=== PATIENT | female | born 1980 | race Two or more races ===

== ENCOUNTER 2021-05-03 09:49 | Emergency (ER) | payer MEDICAID, OTHER ==
[~2021-05-03] VITALS: Ht 152.4 cm; Wt 104.3 kg
[2021-05-03 10:49] LABS: Basophils # (auto) 0 10 ^3/uL (0-0.2); Hemoglobin 10.6 g/dL (12.2-16.2); Lymphocytes # (auto) 2.6 10 ^3/uL (0.4-5.4); Monocytes # (auto) 0.2 10 ^3/uL (0-1.3)
[2021-05-03 10:51] LABS: Basophils % (auto) 0.3 % (0.0-2.0); Eosinophils # (auto) 0.1 10 ^3/uL (0-0.8); Eosinophils % (auto) 1.4 % (0.0-7.0); Hematocrit 33.5 % (36.0-46.0); Lymphocytes % (auto) 28.1 % (10.0-50.0); Mean Corpuscular Hemoglobin 22.2 pg (28.0-32.0); Mean Corpuscular Hgb Conc. 31.5 g/dL (32.0-36.0); Mean Corpuscular Volume 70.4 fL (80.0-100.0); Monocytes % (auto) 2.6 % (0.0-12.0); Neutrophils # (auto) 6.2 10 ^3/uL (1.6-8.6); Neutrophils % (auto) 67.6 % (37.0-80.0); Red Blood Cells 4.76 10^6/uL (4.0-5.20); Red Cell Distribution Width 16.3 % (11.8-14.3); White Blood Cell 9.2 10^3/uL (4.4-10.8)
[2021-05-03] MEDS ORDERED: ONDANSETRON HCL 4 MG/2 ML VIAL IV ONE (11:00)
[2021-05-03] MEDS ORDERED: MORPHINE SULFATE 4 MG/ML SYR/VIAL IV ONE (11:00)
[2021-05-03 11:18] LABS: Albumin 3.6 g/dL (3.4-5.0); BUN/Creatinine Ratio 26.2; Bilirubin, Total 0.3 mg/dL (0.2-1.0); Calcium 8.4 mg/dL (8.5-10.1); Total Protein 7.3 g/dL (6.4-8.2)
[2021-05-03 15:19] LABS: Urine Bacteria NONE SEEN /hpf (None Seen); Urine Blood 3+ /uL (Negative); Urine Mucus FEW (None Seen); Urine Specific Gravity 1.022 (1.001-1.035); Urine WBC 363 /hpf (0 - 5)
[2021-05-03 15:45] VITALS: BP 142/58
== END 2021-05-03 15:37 | disposition home or self-care (01) ==
LOC: ER 09:49
DX: N39.0 Urinary tract infection, site not specified (principal); E11.9 Type 2 diabetes mellitus without complications; Z90.49 Acquired absence of other specified parts of digestive tract
CPT/HCPCS: 36415; 76830; 76856; 80053; 81001; 84702; 85025

== ENCOUNTER 2021-06-25 08:32 | Emergency (ER) | payer MEDICAID ==
[~2021-06-25] VITALS: Ht 165.1 cm; Wt 113.4 kg
[2021-06-25] MEDS ORDERED: IOHEXOL 300 MG/ML 100ML BOTTLE IJ ONE (08:55)
[2021-06-25] MEDS ORDERED: PROMETHAZINE HCL 25 MG/ML 1ML IV ONE (09:00)
[2021-06-25] MEDS ORDERED: HYDROmorphone HCL 2 MG/ML VL IV ONE (09:00)
[2021-06-25 09:20] LABS: Eosinophils # (auto) 0.1 10 ^3/uL (0-0.8); Hemoglobin 11.1 g/dL (12.2-16.2); Mean Corpuscular Volume 71.3 fL (80.0-100.0); Monocytes # (auto) 0.3 10 ^3/uL (0-1.3); Nucleated Red Blood Cells % 0.1 %; Red Cell Distribution Width 16.8 % (11.8-14.3)
[2021-06-25 09:22] LABS: Basophils # (auto) 0.2 10 ^3/uL (0-0.2); Basophils % (auto) 1.1 % (0.0-2.0); Eosinophils % (auto) 0.7 % (0.0-7.0); Hematocrit 35.2 % (36.0-46.0); Lymphocytes # (auto) 2.2 10 ^3/uL (0.4-5.4); Lymphocytes % (auto) 15.6 % (10.0-50.0); Mean Corpuscular Hemoglobin 22.4 pg (28.0-32.0); Mean Corpuscular Hgb Conc. 31.5 g/dL (32.0-36.0); Monocytes % (auto) 2.3 % (0.0-12.0); Neutrophils # (auto) 11.1 10 ^3/uL (1.6-8.6); Neutrophils % (auto) 80.3 % (37.0-80.0); Red Blood Cells 4.94 10^6/uL (4.0-5.20); White Blood Cell 13.8 10^3/uL (4.4-10.8)
[2021-06-25 09:40] LABS: Albumin 3.6 g/dL (3.4-5.0); Calcium 8.8 mg/dL (8.5-10.1); Potassium 4.1 mmol/L (3.5-5.1)
[2021-06-25 09:42] LABS: Bilirubin, Total 0.2 mg/dL (0.2-1.0); Total Protein 8.1 g/dL (6.4-8.2)
[2021-06-25] MEDS ORDERED: IBU600T PO (11:35)
[2021-06-25] MEDS ORDERED: CEPH-509 PO (11:35)
[2021-06-25 11:43] VITALS: BP 136/85
[2021-06-25] MEDS ORDERED: HYDROcodone-ACET 5/325MG TAB PO ONE (11:45)
[2021-06-25] MEDS ORDERED: SODIUM CHLORIDE 0.9% 1,000 ML IV ONE ×2 (11:45)
== END 2021-06-25 12:02 | disposition home or self-care (01) ==
LOC: ER 08:32 → EDBD 08:32 → ER 12:02
DX: S43.101A Unspecified dislocation of right acromioclavicular joint, initial encounter (principal); S60.811A Abrasion of right wrist, initial encounter; S00.81XA Abrasion of other part of head, initial encounter; E11.9 Type 2 diabetes mellitus without complications; V43.52XA Car driver injured in collision with other type car in traffic accident, initial encounter; Y93.89 Activity, other specified; Y92.89 Other specified places as the place of occurrence of the external cause; Y99.8 Other external cause status
CPT/HCPCS: 36415; 73030; 74177; 80053; 85025; 99285; J1170; J2550; J7030; Q9967